=== PATIENT | female | born 1990 | race Caucasian/White ===

== ENCOUNTER 2016-05-09 22:53 | Emergency (ER) | payer OTHER ==
--- NOTE | 2016-05-10 00:04 | ED GENERAL ADULT ---
History of Present Illness General Chief Complaint: General Adult Stated Complaint: TIC BITE BACK OF RIGHT ARM, RED AND SWOLLEN Source: patient Exam Limitations: no limitations Vital Signs & Intake/Output Vital Signs & Intake/Output Vital Signs Date Time Temp Pulse Resp B/P Pulse O2 O2 Flow FiO2 Ox Delivery Rate 05/10 0022 98.4 100 16 130/88 98 Room Air 05/09 2257 98.4 116 16 131/92 97 Room Air Triage Note: TRIAGE; PT TO ED S/P TICK REMOVAL TO RT ARM TODAY, UNSURE WHEN TICK BIT HER. AREA RED AND SLIGHTLY SWOLLEN. STATES SHE HAS A JARVIS, AND FEELS TIRED. Triage Nurses Notes Reviewed? yes Onset: Gradual Timing: unknown Injury Environment: home Severity: moderate Severity Numbers: 6 No Modifying Factors: none : No Patient currently breastfeeds: No HPI: Patient is a 25-year-old female presenting to the emergency department with chief complaint of tick bite to right upper arm. She is not sure how long the tick was on therefore. Pain is moderate achy throbbing. She was able to pull off the tick today. She also reports bodyaches, malaise. Denies any visual changes or headaches. No fevers. Nothing seems to make the symptoms better or worse. No history of Lyme disease. (LEXIS KINGSTON) Allergies Coded Allergies: amoxicillin (Severe, ANAPHYLAXIS 05/10/16) (DORON THOMSON,JAISON) Past History Travel History Traveled to [place] past 21 day No Medical History Any Pertinent Medical History? see below for history Endocrine: James's thyroiditis, CUSHINGS Surgical History Surgical History: non-contributory Psychosocial History What is your primary language Turkmen Tobacco Use: Never used Family History Hx Contributory? No (LEXIS KINGSTON) Review of Systems Review of Systems Constitutional: Reports: malaise. Comments Review of systems: See HPI, All other systems negative. Constitutional, no chills fever or weight loss HEENT: No visual changes no sore throat no congestion Cardiovascular: No chest pain ,palpitation , orthopnea or ankle swelling Skin, no jaundice Respiratory: No dyspnea cough sputum or hemoptysis GI: No nausea no vomiting : No dysuria No hematuria Muscle skeletal: no back pain, no neck pain, Neurologic: No numbness no confusion Psych: No stress anxiety Immunology: No splenectomy or history of AIDS (LEXIS KINGSTON) Physical Exam Physical Exam General Appearance: well developed/nourished, no apparent distress, alert, awake , comfortable Comments: Well-developed well-nourished person in no acute distress HEENT: Pupils equally round and reactive to light and accommodation. Nose is atraumatic. Neck: Normal inspection Back: Nontender Cardiovascular: normal JVP Respiratory: No respiratory distress. Extremity: No edema, radial pulses are 2+ bilaterally. Mild tenderness to palpation in the posterior aspect of the right upper arm over the tick bite. Neuro: Alert oriented x3, Skin: Small area of erythema approximately 2 cm in size on the right upper arm, posterior aspect. Centralized abrasion. No target lesion. No discharge. Nonfluctuant. Psych: Mood and affect is normal, memory and judgment is normal. Core Measures ACS in differential dx? No CVA/TIA Diagnosis: No Severe Sepsis Present: No Septic Shock Present: No (LEXIS KINGSTON) Progress Differential Diagnoses I considered the following diagnoses in my evaluation of the patient: Lyme disease, cellulitis, tick bite, abrasion Plan of Care: Orders Procedure Date/time Status LYME TITRE 05/10 3 Active Laboratory Tests 05/10/16 0015: Lyme Disease Antibody Pending Initial ED EKG: none Comments: Patient given 200 mg of by mouth doxycycline for prophylaxis. Take foreign panel drawn and sent to lab. She'll follow that. We will call her with any positive results. (LEXIS KINGSTON) Departure Departure Time of Disposition: 3 Disposition: HOME OR SELF CARE Condition: Stable Clinical Impression Primary Impression: Tick bite Qualifiers: Encounter type: initial encounter Qualified Code: W57.XXXA - Bitten or stung by nonvenomous insect and other nonvenomous arthropods, initial encounter Referrals: UNKNOWN (PCP/Family) Additional Instructions: Follow-up with her primary care physician call to make an appointment. Keep area clean. We will call you with Lyme titer results. Return for worsening symptoms or concerns. Departure Forms: Customer Survey General Discharge Information (LEXIS KINGSTON) PA/BAILER OPERATORS SUPERVISOR Co-Sign Statement Statement: ED Attending supervision documentation- [] I saw and evaluated the patient. I have also reviewed all the pertinent lab results and diagnostic results. I agree with the findings and the plan of care as documented in the PA's/BAILER OPERATORS SUPERVISOR's documentation. x I have reviewed the ED Record and agree with the PA's/BAILER OPERATORS SUPERVISOR's documentation. [] Additions or exceptions (if any) to the PAs/BAILER OPERATORS SUPERVISOR's note and plan are summarized below: [] (DORON THOMSON,JAISON) Critical Care Note Critical Care Note Critical Care Time: non-applicable (MATT GUNN,LEXIS)
[2016-05-10 00:22] VITALS: BP 130/88
== END 2016-05-10 00:24 ==
LOC: ERH 22:53
DX: S40.861A Insect bite (nonvenomous) of right upper arm, initial encounter (principal); W57.XXXA Bitten or stung by nonvenomous insect and other nonvenomous arthropods, initial encounter
CPT/HCPCS: 86618